=== PATIENT | male | born 1970 | race Caucasian/White ===

== ENCOUNTER → 2021-02-02 03:46 | Outpatient (CLI) | payer OTHER, SELFPAY ==
[2021-02-02 18:30] LABS: SARS-CoV-2 RNA PCR Negative
== END ==
PROVIDERS: PCP Family Medicine; Visit Provider Surgery
DX: Z01.812 Encounter for preprocedural laboratory examination (principal); Z20.822 Contact with and (suspected) exposure to COVID-19
CPT/HCPCS: C9803; U0003; U0005

== ENCOUNTER 2021-02-03 08:28 | Outpatient (CLI) | payer OTHER, SELFPAY ==
[2021-02-03 09:34] LABS: Anion Gap 9 mmol/L (8-16); Blood Urea Nitrogen 18 mg/dL (9-20); Calcium 9.3 mg/dL (8.4-10.2); Carbon Dioxide 24 mmol/L (22-30); Chloride 102 mmol/L (98-107); Estimated Glomerular Filt Rate > 60; Glucose 89 mg/dL (65-110); Sodium 135 mmol/L (137-145)
== END 2021-02-03 08:29 | disposition home or self-care (01) ==
PROVIDERS: Anesthesiology; PCP Family Medicine; Visit Provider Surgery
DX: E11.9 Type 2 diabetes mellitus without complications (principal); Z01.812 Encounter for preprocedural laboratory examination
CPT/HCPCS: 36415; 80048

== ENCOUNTER 2021-02-05 02:30 | Day surgery (SDC) | payer OTHER, SELFPAY ==
[2021-02-02 10:06] VITALS: BMI 33.7
--- NOTE | 2021-02-04 14:34 | PM.SD2 ---
Same Day Admit/Disch: HPI History of Present Illness Chief complaint: umbilical hernia Narrative: Davidson Vasquez is a 50 year old male who has had a bulge at the umbilicus for probably 8 years. In recent months this has become symptomatic. He notices a pulling sensation and discomfort over the site. It is a little harder to reduce and the overlying skin has a purplish discoloration. He was seen in the office and is now taken to surgery for umbilical hernia repair. [facility] Past Medical History Medical History Asthma At risk for obstructive sleep apnea Benign hypertension BMI (body mass index) 20.0-29.9 BMI 35.0-35.9,adult BMI 36.0-36.9,adult Body mass index [BMI] 34.0-34.9, adult (03/30/16) COVID-19 Diabetes Dietary counseling and surveillance (02/13/18) Elevated fasting glucose Encounter for general adult medical examination without abnormal findings Encounter for screening for diabetes mellitus Encounter for screening for malignant neoplasm of prostate Facial skin lesion Hyperlipidemia, mixed Low testosterone Need for tetanus booster Screening for thyroid disorder Skin neoplasm Umbilical hernia without obstruction and without gangrene Vitamin D deficiency, unspecified Surgical History Surgical History History of removal of skin mole Family History Family History Sibling Diabetes mellitus Mother Lung cancer Father Hypertension Heart disease Other Family history of coronary artery disease Social History Social History Smoking status: Never smoker Alcohol intake: current Substance use type: does not use Living arrangements: with family 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 Gender identity (if verbalized by the patient): Male Spiritual care concerns: No Same Day Admit/Disch: Med Pre-admit Medications Home Medications Medication Instructions Recorded Confirmed Type lisinopril 10 mg tablet 10 mg PO DAILY #30 tablet 06/12/19 02/05/21 Rx cetirizine 10 mg disintegrating 10 mg PO DAILY 05/23/20 02/05/21 History tablet albuterol sulfate 90 mcg/actuation 1 inh INHALATION Q4H PRN #8.5 g 10/29/20 02/05/21 Rx aerosol inhaler metformin 500 mg tablet,extended 500 mg PO DAILY #30 tablet 12/01/20 02/05/21 Rx release 24 hr semaglutide 1 mg/dose (4 mg/3 mL) 1 mg SUBCUT WEEKLY #9 ml 12/01/20 02/02/21 Rx subcutaneous pen injector hydrocodone-acetaminophen 1 - 2 tablet PO Q6H PRN #12 tablet 02/05/21 Rx ketorolac 10 mg PO Q6H 4 Days #16 tablet 02/05/21 Rx Exam Const: General: comfortable, no acute distress, alert and awake HENMT: Head: normocephalic and atraumatic Mouth: Yes Normal oral and palatal mucosa present Eyes: Conjunctivae: conjunctivae normal Pupils: Equal, round and reactive pupils present EOM: EOMs intact bilaterally Neck: Neck: normal visual inspection, no lymphadenopathy and nontender Resp: Effort & Inspection: normal respiratory effort Auscultation: clear to auscultation bilaterally Cardio: Rate: regular rate Rhythm: regular rhythm Heart sounds: no gallops, no murmurs and no rubs GI: Inspection: non-distended and visible herniation (Large umbilical hernia, dusky overlying skin) GI Palp: Yes Soft to palpation, No Tenderness to palpation present (GI), No Hepatomegaly present, No Splenomegaly present and Yes Hernia present (Umbilical hernia reducible, nontender) Auscultation: normal bowel sounds Skin: Lesions: no lesions Rashes: no rashes Neuro: General: no focal motor deficits and CN's II-XI intact bilaterally Cranial nerves: Yes Equal, round and reactive pupils present, Yes Bilaterally intact EOM present, Yes facial symmetry and Yes Midline tongue present Speech: normal speech Motor exam (neuro): 5/5 motor s
[2021-02-05 08:41] VITALS: BP 134/88; PULSE 83; RESP 20; TEMP 36.6; O2SAT 99
[2021-02-05] MEDS: ACETAMINOPHEN 500 MG TABLET 1000 MG PO (08:44)
[2021-02-05] MEDS: LACTATED RINGERS 1,000 ML 30 ML IV CONT (09:25)
[2021-02-05] MEDS: KETOROLAC 15 MG/ML VIAL (*BKC) IV PUSH (09:28)
--- NOTE | 2021-02-05 09:28 | P.PNAN_ITS ---
Anes - Initial Pre Proc Eval Procedure: Operation Date: 02/05/21 10:30 Proposed Procedures p Umbilical Hernia Repair with Mesh - Roberto Mason MD Date/Time: 02/05/21 09:28 Surgeon: Roberto Mason MD Pre Op Diagnosis: umbilical hernia Patient Data Age: 50 Gender: M Height: 1.78 m Weight: 106.8 kg Allergies Allergy/AdvReac Type Severity Reaction Status Date / Time No Known Allergies Allergy Verified 02/05/21 08:42 Home Medications Medication Instructions Recorded Confirmed Type lisinopril 10 mg tablet 10 mg PO DAILY #30 tablet 06/12/19 02/05/21 Rx cetirizine 10 mg disintegrating 10 mg PO DAILY 05/23/20 02/05/21 History tablet albuterol sulfate 90 mcg/actuation 1 inh INHALATION Q4H PRN #8.5 g 10/29/20 02/05/21 Rx aerosol inhaler metformin 500 mg tablet,extended 500 mg PO DAILY #30 tablet 12/01/20 02/05/21 Rx release 24 hr semaglutide 1 mg/dose (4 mg/3 mL) 1 mg SUBCUT WEEKLY #9 ml 12/01/20 02/02/21 Rx subcutaneous pen injector Patient hx anesthesia problems: none Family hx anesthesia problems: none PMFSH Past Medical History Medical History Asthma At risk for obstructive sleep apnea Benign hypertension BMI (body mass index) 20.0-29.9 BMI 35.0-35.9,adult BMI 36.0-36.9,adult Body mass index [BMI] 34.0-34.9, adult (03/30/16) COVID-19 Diabetes Dietary counseling and surveillance (02/13/18) Elevated fasting glucose Encounter for general adult medical examination without abnormal findings Encounter for screening for diabetes mellitus Encounter for screening for malignant neoplasm of prostate Facial skin lesion Hyperlipidemia, mixed Low testosterone Need for tetanus booster Screening for thyroid disorder Skin neoplasm Umbilical hernia without obstruction and without gangrene Vitamin D deficiency, unspecified Surgical History Surgical History History of removal of skin mole Family History Family History Sibling Diabetes mellitus Mother Lung cancer Father Hypertension Heart disease Other Family history of coronary artery disease Social History Social History Smoking status: Never smoker Alcohol intake: current Substance use type: does not use Living arrangements: with family 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 Questions were solicited and answers provided to the satisfaction of the patient/family/POA.
[2021-02-05 09:39] LABS: Glucose Point of Care 94 mg/dl (65-105)
--- NOTE | 2021-02-05 11:04 | WPDHPUPDATE1 ---
History and Physical Update Update Date/Time: 02/05/21 11:04 History and Physical has been reviewed, including an updated exam of the patient. There are NO changes in the patient's condition. Risks, benefits, and alternatives have been discussed and questions answered. Patient agrees to proceed with procedure.
[2021-02-05] MEDS: ceFAZolin 2 GM/D5W 50 ML 2 GM/50 ML BAG IVPB (11:08)
[2021-02-05] MEDS: BUPIVACAINE/EPINEPHRINE 0.5% 30 ML VIAL INFILTRATE (11:29)
[2021-02-05 12:05] VITALS: BP 111/77; PULSE 82; RESP 14; O2SAT 96
--- NOTE | 2021-02-05 12:05 | W.PM.PROC2 ---
Procedure Note - Detailed Date of Procedure 02/05/21 Pre-op Diagnosis umbilical hernia Post-op Diagnosis same Procedure Performed Umbilical hernia repair with 4.6 cm Parietex underlay mesh Surgeon Roberto Mason MD Dairy Laboratory Technician Mindy ZAMARRIPA Anesthesia MAC and local (0.5% Marcaine with epinephrine) Indications Patient has had an umbilical bulge for quite some time. More recently it had gotten larger and is occasionally painful. He is taken to surgery now for repair Findings Showed a 1 cm hernia defect Description of Procedure Patient was taken to surgery and IV sedation was administered. The abdomen was prepped and draped. The proposed incision was marked on the skin along the upper margin of the umbilicus. Local anesthesia was infiltrated into the skin and the deeper subcutaneous. Incision was then made dissection carried down to the hernia sac. The hernia sac was then carefully dissected free from the overlying umbilical skin as well as the subcutaneous tissue. I dissected around the hernia defect circumferentially at the fascial level. More local was then infiltrated into the fascia and the neck of the hernia. Using the cautery the hernia sac was then excised at the neck. This was discarded. I placed a finger in the abdomen and checked for any additional hernias. None was found. I undermined around the fascia at the hernia defect. A 4.6 cm Parietex [place] was chosen. It was placed in the defect and centered symmetrically. Cranial and caudal transfascial sutures were then placed using 0 Ethibond. The sutures were placed in such a fashion as to draw the edges of the hernia defect towards 1 another. Once the sutures were tied, they had the desired effect. I then closed the fascia over the mesh using [id number] mattress sutures of 0 Ethibond. Each of these sutures also included a bit of mesh. The umbilical skin was then sutured to the fascia using 3-0 Vicryl suture. Subcutaneous 3-0 Vicryl sutures were then placed. Some interrupted 4 0 Vicryl subcuticular skin sutures were placed. Finally the skin was closed with a running 4-0 Monocryl skin suture. The wound was dressed with Exofin surgical adhesive. Patient was awakened and taken to recovery in good condition. Sponge and needle counts were correct x2. Implants 4.6 cm Parietex [place] Estimated Blood Loss 5 Drains No Packing No Pathology none sent Complications None Condition stable Disposition same day
[2021-02-05 12:07] LABS: Glucose Point of Care 87 mg/dl (65-105)
[2021-02-05 12:35] VITALS: BP 125/85; PULSE 78; RESP 16
== END 2021-02-05 13:20 | disposition home or self-care (01) ==
PROVIDERS: PCP Family Medicine; Visit Provider Surgery
PROC: (CPT 49585; principal; 2021-02-05 10:30)
DX: K42.9 Umbilical hernia without obstruction or gangrene (principal); Z79.84 Long term (current) use of oral hypoglycemic drugs; Z79.51 Long term (current) use of inhaled steroids; J45.909 Unspecified asthma, uncomplicated; I10 Essential (primary) hypertension; E11.9 Type 2 diabetes mellitus without complications; Z86.16 Personal history of COVID-19; E78.2 Mixed hyperlipidemia; E55.9 Vitamin D deficiency, unspecified; Z86.03 Personal history of neoplasm of uncertain behavior; E66.9 Obesity, unspecified; Z68.33 Body mass index [BMI] 33.0-33.9, adult
CPT/HCPCS: 49585; 36415; 80048; 82948; A9270; C1781; C9803; J0690; J1885; J2250; J2704; J3010; J7120; U0003; U0005

== ENCOUNTER 2022-09-02 12:43 | Day surgery (SDC) | payer OTHER, SELFPAY ==
[2022-08-10 09:31] VITALS: BMI 33.3
[2022-08-27 13:42] VITALS: BMI 32.8
[2022-09-02 12:50] VITALS: BP 132/89; PULSE 70; RESP 18; TEMP 37.1; O2SAT 100
[2022-09-02] MEDS: LACTATED RINGERS 1,000 ML 150 ML IV CONT (13:10)
--- NOTE | 2022-09-02 13:52 | PM.HPGS ---
History of Present Illness History of Present Illness Consent: Risks, benefits, and alternatives have been discussed and questions answered. Patient agrees to proceed with procedure. Chief complaint: Neoplasm Screening Narrative: Davidson Vasquez is a 52 year old male Presents for screening colonoscopy. Patient's current weight appetite and bowel movements are normal. Patient denies abdominal pain. He has had no bleeding. Family history is noncontributory. Review of Systems Review of Systems: Review of systems noncontributory. [facility] Past Medical History Medical History Asthma At risk for obstructive sleep apnea Benign hypertension BMI (body mass index) 20.0-29.9 BMI 33.0-33.9,adult BMI 35.0-35.9,adult BMI 36.0-36.9,adult BMI greater than 30 Body mass index [BMI] 34.0-34.9, adult (03/30/16) COVID-19 Diabetes Dietary counseling and surveillance (02/13/18) Elevated fasting glucose Encounter for general adult medical examination without abnormal findings Encounter for screening for diabetes mellitus Encounter for screening for malignant neoplasm of prostate Facial skin lesion Hyperlipidemia, mixed Low testosterone Need for tetanus booster Screening for thyroid disorder Skin neoplasm Umbilical hernia without obstruction and without gangrene Vitamin D deficiency, unspecified Surgical History Surgical History History of removal of skin mole Hx of umbilical hernia repair Umbilical hernia repair with 4.6cm Parietex underlay mesh - 02/05/2021 Family History Family History Sibling Diabetes mellitus COVID-19 Mother Lung cancer Father Hypertension Heart disease COVID-19 Other Family history of coronary artery disease Social History Social History Smoking status: Never smoker Second hand tobacco smoke exposure: Yes Alcohol intake: current Substance use: never Substance use type: does not use Lack of Transportation: No Lack of Food: Never True Current Housing: I Have Housing Concerned About Future Housing: No Difficulty Paying Gas/Electric Bills: No Difficulty Paying for Meds: No Currently Unemployed: No Education: Trade/Vocational Certificate Difficulty w/ Childcare or Family Care: No Living arrangements: with family Occupation/Education: occupation 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 Gender identity (if verbalized by the patient): Male Spiritual care concerns: No Meds Home Medications and Allergies Home Medications Medication Instructions Recorded Confirmed Type albuterol sulfate 90 mcg/actuation 1 inh inhalation Q4H PRN shortness 12/08/21 09/02/22 Rx aerosol inhaler (ProAir HFA) of breath or wheezing #8.5 grams lisinopril 10 mg tablet 10 mg PO DAILY #90 tabs 07/29/22 09/02/22 Rx cholecalciferol (vitamin D3) 1,250 1,250 mcg PO WEEKLY 8 weeks #8 caps 08/04/22 09/02/22 Rx mcg (50,000 unit) capsule rosuvastatin 20 mg tablet (Crestor) 20 mg PO DAILY #30 tabs 08/04/22 09/02/22 Rx sodium,potassium,mag sulfates 17.5 See Rx Instructions PO .COMPLEX 08/10/22 09/02/22 Rx gram-3.13 gram-1.6 gram oral soln #354 mL (Suprep Bowel Prep Kit) cetirizine 5 mg-pseudoephedrine ER 1 tablet PO Q12H 08/27/22 09/02/22 History 120 mg tablet,extended release,12hr (Zyrtec-D) Allergies Allergy/AdvReac Type Severity Reaction Status Date / Time No Known Allergies Allergy Verified 09/02/22 12:57 Vital Signs Vital Signs - 24 hr 09/02/22 12:50 Temperature 98.8 F Pulse Rate 70 Respiratory Rate 18 Blood Pressure 132/89 Pulse Oximetry 100 Oxygen Delivery Room Air Exam Narrative: Physical exam reveals patient to be alert. Vital signs stable. HEENT exam is unremarkable. Patient i
--- NOTE | 2022-09-02 14:17 | WPDANESEPPF ---
Anes - Initial Pre Proc Eval Procedure: Operation Date: 09/02/22 14:30 Proposed Procedures p Screening Colonoscopy - Ruddy Coy MD Date/Time: 09/02/22 14:17 Surgeon: Ruddy Coy MD Pre Op Diagnosis: Neoplasm Screening Patient Data Age: 52 Gender: M Height: 1.78 m Weight: 104.5 kg Last Vital Signs Temp 37.1 C 09/02/22 12:50 Pulse 70 09/02/22 12:50 Resp 18 09/02/22 12:50 BP 132/89 09/02/22 12:50 Pulse Ox 100 09/02/22 12:50 O2 Del Method Room Air 09/02/22 12:50 Allergies Allergy/AdvReac Type Severity Reaction Status Date / Time No Known Allergies Allergy Verified 09/02/22 12:57 Home Medications Medication Instructions Recorded Confirmed Type albuterol sulfate 90 mcg/actuation 1 inh inhalation Q4H PRN shortness 12/08/21 09/02/22 Rx aerosol inhaler (ProAir HFA) of breath or wheezing #8.5 grams lisinopril 10 mg tablet 10 mg PO DAILY #90 tabs 07/29/22 09/02/22 Rx cholecalciferol (vitamin D3) 1,250 1,250 mcg PO WEEKLY 8 weeks #8 caps 08/04/22 09/02/22 Rx mcg (50,000 unit) capsule rosuvastatin 20 mg tablet (Crestor) 20 mg PO DAILY #30 tabs 08/04/22 09/02/22 Rx sodium,potassium,mag sulfates 17.5 See Rx Instructions PO .COMPLEX 08/10/22 09/02/22 Rx gram-3.13 gram-1.6 gram oral soln #354 mL (Suprep Bowel Prep Kit) cetirizine 5 mg-pseudoephedrine ER 1 tablet PO Q12H 08/27/22 09/02/22 History 120 mg tablet,extended release,12hr (Zyrtec-D) Patient hx anesthesia problems: none Family hx anesthesia problems: none Results Review: All pre-operative results and documents have been reviewed as part of the pre-operative evaluation. [facility] Past Medical History Medical History Asthma At risk for obstructive sleep apnea Benign hypertension BMI (body mass index) 20.0-29.9 BMI 33.0-33.9,adult BMI 35.0-35.9,adult BMI 36.0-36.9,adult BMI greater than 30 Body mass index [BMI] 34.0-34.9, adult (03/30/16) COVID-19 Diabetes Dietary counseling and surveillance (02/13/18) Elevated fasting glucose Encounter for general adult medical examination without abnormal findings Encounter for screening for diabetes mellitus Encounter for screening for malignant neoplasm of prostate Facial skin lesion Hyperlipidemia, mixed Low testosterone Need for tetanus booster Screening for thyroid disorder Skin neoplasm Umbilical hernia without obstruction and without gangrene Vitamin D deficiency, unspecified Surgical History Surgical History History of removal of skin mole Hx of umbilical hernia repair Umbilical hernia repair with 4.6cm Parietex underlay mesh - 02/05/2021 Family History Family History Sibling Diabetes mellitus COVID-19 Mother Lung cancer Father Hypertension Heart disease COVID-19 Other Family history of coronary artery disease Social History Social History Smoking status: Never smoker Second hand tobacco smoke exposure: Yes Alcohol intake: current Substance use: never Substance use type: does not use Lack of Transportation: No Lack of Food: Never True Current Housing: I Have Housing Concerned About Future Housing: No Difficulty Paying Gas/Electric Bills: No Difficulty Paying for Meds: No Currently Unemployed: No Education: Trade/Vocational Certificate Difficulty w/ Childcare or Family Care: No Living arrangements: with family Occupation/Education: occupation 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
[2022-09-02 15:10] VITALS: BP 120/87; PULSE 79; RESP 16; O2SAT 97
--- NOTE | 2022-09-02 15:18 | WPDANESPN ---
Anes - Prog Note Post-Op Date/Time: 09/02/22 15:18 Cardiovascular status: normal Respiratory status: normal Airway patency: baseline Mental status: baseline Post-Op hydration status: normal Vital Signs: Last Vital Signs Temp 37.1 C 09/02/22 12:50 Pulse 70 09/02/22 12:50 Resp 18 09/02/22 12:50 BP 132/89 09/02/22 12:50 Pulse Ox 100 09/02/22 12:50 O2 Del Method Room Air 09/02/22 12:50 Pain Score (VAS): 0/10 I/O: Intake & Output 09/01/22 09/02/22 09/02/22 23:59 07:59 15:59 Intake Total 0 Balance 0 Patient Feedback: Patient satisfied with anesthetic care.
[2022-09-02 15:20] VITALS: BP 127/88; PULSE 72; RESP 16; O2SAT 97
[2022-09-02 15:30] VITALS: BP 131/88; PULSE 66; RESP 16; O2SAT 98
== END 2022-09-02 15:39 | disposition home or self-care (01) ==
PROVIDERS: PCP Family Medicine; Visit Provider Internal Medicine Gastroenterology
PROC: 0DJD8ZZ Inspection of Lower Intestinal Tract, Via Natural or Artificial Opening Endoscopic (ICD-10-PCS; CPT 45378; principal; 2022-09-02 14:30)
DX: Z12.11 Encounter for screening for malignant neoplasm of colon (principal)
CPT/HCPCS: 45378

== ENCOUNTER 2024-10-05 15:45 | Outpatient (CLI) | payer OTHER, SELFPAY ==
--- NOTE | ~2024-10-05 | MR_ITS ---
MRI of the brain Clinical History: Sensorineural hearing loss Technique: Axial and sagittal T1-weighted images were acquired. These were followed by axial T2-weigh rj, diffusion weighted, gradient, and FLAIR images. Thin cut coronal and axial T1-weighted and T2-we ighted images were acquired through the internal auditory canals. Following intravenous administratio n of 20 cc MultiHance gadolinium, T1-weighted fat-sat imaging was performed through the brain in the axial and coronal planes. Thin cut T1-weighted postcontrast imaging was performed through the interna l auditory canals in the axial and coronal planes. Findings: No intracranial hemorrhage, acute infarct or mass lesion seen. There are few tiny foci of h yperintense FLAIR signal in the periventricular white matter of the frontal lobes bilaterally, compat ible with minimal chronic microvascular ischemic change. Ventricles and subarachnoid spaces are unremarkable. Orbits are unremarkable. Paranasal sinuses and m astoid regions are clear. Major intracranial flow voids are intact. Sagittal midline structures are intact. No abnormal mass lesion seen at the internal auditory canals or cerebellopontine angle regions. No abnormal postcontrast enhancement identified. IMPRESSION: Minimal chronic microvascular ischemic change, as above, otherwise unremarkable exam. Reviewed, dictated and finalized at location .
== END 2024-10-05 15:46 | disposition home or self-care (01) ==
LOC: MICIMG 15:45
PROVIDERS: PCP Family Medicine; Visit Provider Nurse Practitioner Family
DX: H90.5 Unspecified sensorineural hearing loss (principal)
CPT/HCPCS: 70553; A9577